=== PATIENT | female | born 1975 | race Caucasian/White ===

== ENCOUNTER 2017-07-28 15:56 | Emergency (ER) | payer OTHER ==
--- NOTE | 2017-07-28 16:40 | RAD REPORT ---
EXAM DESCRIPTION: Jean Single View07/28/2017 4:34 pm CLINICAL HISTORY: Chest pain COMPARISON: none FINDINGS: The lungs appear clear of acute infiltrate. The heart is normal size IMPRESSION: No acute abnormalities displayed
[2017-07-28 16:48] LABS: Absolute Lymphocytes (CBC) 2.2 K/uL (0.7-4.9); Absolute Monocytes 0.7 K/uL (0.1-1.3); Absolute Neutrophil 6.6 K/uL (1.8-8.0); Basophils % 0.6 % (0-1.3); Eosinophils % 2.6 % (0-4.4); Hematocrit 42.7 % (36.0-45.0); Lymphocytes % 22.8 % (15.3-44.8); MCH 32.3 pg (27.0-35.0); MCV 91.9 fL (80-100); Monocytes % 6.8 % (3.3-12.3); RBC Red Blood Cell Count 4.65 M/uL (3.86-4.86)
[2017-07-28 17:00] LABS: Bicarbonate 27 mEq/L (21-31); Glucose Level 93 mg/dL (65-120); Potassium 3.5 mEq/L (3.6-5.0); Sodium Level 137 mEq/L (135-145)
[2017-07-28 17:03] LABS: ALT/SGPT 16 IU/L (10-60); AST/SGOT 19 IU/L (10-42); Albumin 4.5 g/dL (3.2-5.5); Alkaline Phosphatase 67 IU/L (42-121); BUN Blood Urea Nitrogen 7 mg/dL (6-20); Bilirubin Total 0.6 mg/dL (0.3-1.2); Glomerular Filtration Rate > 90 mL/min (=/>90); Protein, Total 7.9 g/dL (6.0-8.3)
--- NOTE | 2017-07-28 18:37 | ER ---
Nurse's Notes [facility] Name: Herminia Chauhan Age: 42 yrs Sex: Female : 1975 Arrival Date: 07/28/2017 Time: 15:59 Bed 27 Private MD: Diagnosis: Chest pain, unspecified;Anxiety disorder, unspecified Presentation: 07/28 16:09 Presenting complaint: Patient states: "I started 3 days ago with a numbness in my left lk1 arm and I thought I slept wrong. Last night I started having chest pains off and on. This morning I woke up with a pins and needles feeling in the left side of my face.". Transition of care: patient was not received from another setting of care. Onset of symptoms was July 24, 2017. Care prior to arrival: None. 16:09 Method Of Arrival: Ambulatory lk1 16:09 Acuity: JAZMIN 3 lk1 Triage Assessment: 16:11 General: Appears in no apparent distress. Behavior is calm, cooperative, appropriate lk1 for age. Pain: Denies pain. Cardiovascular: Capillary refill is brisk Patient's skin is warm and dry. 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 - Social history:: Smoking status: Patient uses tobacco products, smokes one-half pack cigarettes per day. Screenin:44 Abuse screen: Denies threats or abuse. Nutritional screening: No deficits noted. kb1 Tuberculosis screening: No symptoms or risk factors identified. Fall Risk IV access (20 points). Assessment: 16:44 General: Appears in no apparent distress. Behavior is calm, cooperative. Pain: Denies kb1 pain. Neuro: Level of Consciousness is awake, alert, obeys commands, Oriented to person, place, time, situation, Emergency Medicine Physician Assistant are equal bilaterally Moves all extremities. Speech is normal, Facial symmetry appears normal, Intact. Cardiovascular: Patient's skin is warm and dry. Respiratory: Airway is patent. GI: Reports nausea. 17:30 Reassessment: Patient appears in no apparent distress at this time. Patient and/or kb1 family updated on plan of care and expected duration. Pain level reassessed. Patient is alert, oriented x 3, equal unlabored respirations, skin warm/dry/pink. 18:45 Reassessment: Patient appears in no apparent distress at this time. Patient and/or kb1 family updated on plan of care and expected duration. Pain level reassessed. Patient is alert, oriented x 3, equal unlabored respirations, skin warm/dry/pink. Vital Signs: 16:12 BP 146 / 87; Pulse 103; Resp 16; Temp 97.8(TE); Pulse Ox 99% on R/A; Weight 70.31 kg lk1 (R); Height 5 ft. 6 in. (167.64 cm) (R); Pain 0/10; 17:00 BP 123 / 78; Pulse 79; Resp 18; Pulse Ox 98% ; kb1 18:30 BP 116 / 77; Pulse 84; Resp 18; Pulse Ox 99% ; kb1 16:12 Body Mass Index 25.02 (70.31 kg, 167.64 cm) lk1 ED Course: 15:59 Patient arrived in ED. as 16:07 Dino Garcia MD is Attending Physician. ps1 16:11 Triage completed. lk1 16:12 Arm band placed on right wrist. lk1 16:29 Cindy Cheng, RN is Primary Nurse. kb1 16:33 X-ray completed. Portable x-ray completed in exam room. Patient tolerated procedure bb2 well. 16:33 CXR XRAY In Process Unspecified. EDMS 16:44 Patient has correct armband on for positive identification. Bed in low position. Call kb1 light in reach. Side rails up X 1. Pulse ox on. NIBP on. Warm blanket given. 16:44 No provider procedures requiring assistance completed. Inserted saline lock: 22 gauge kb1 in right antecubital area, using aseptic technique. Blood collected. Patient maintains SpO2 saturation greater than 95% on room air. 16:45 EKG done, by ocular care technician. reviewed by Dino Garcia MD. at1 19:03 IV discontinued, intact, bleeding controlled, No redness/swelling at site. Pressure kb1 dressing applied. Administered Medications: No medications were administered Outcome: 18:37 Discharge ordered by . ps1 19:03 Patient left the ED. kb1 Signatures: Dispatcher [employer] EDMS Cathleen Suárez Amanda, internet database specialist EKG Tat1 Kandace Borges, RN RN lk1 Dino Garcia MD MD ps1 Susie Joseph bb2 Cindy Cheng, LEN RN kb1
--- NOTE | 2017-07-28 18:37 | EDPHYS ---
Physician Documentation [facility] Name: Herminia Chauhan Age: 42 yrs Sex: Female : 1975 Arrival Date: 07/28/2017 Time: 15:59 Bed 27 Private MD: ED Physician Dino Garcia HPI: 07/28 16:22 This 42 yrs old Female presents to ER via Ambulatory with complaints of Chest ps1 Pain, Numbness - L Arm/Face. 16:22 The patient or guardian reports chest pain that is located primarily in the anterior ps1 chest wall, left. Onset: last week. The pain radiates to the left shoulder, Associated signs and symptoms: The patient has no apparent associated signs or symptoms. The chest pain is described as dull. Duration: The patient or guardian reports multiple episodes, that are intermittent, that wax and wane. Severity of pain: At its worst the pain was moderate. believes that this is stress or anxiety provoked. 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 . 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 - Social history:: Smoking status: Patient uses tobacco products, smokes one-half pack cigarettes per day. ROS: 16:22 Constitutional: Negative for fever, chills, and weight loss, ENT: Negative for injury, ps1 pain, and discharge, Neck: Negative for injury, pain, and swelling. 16:22 Respiratory: Negative for shortness of breath, cough, wheezing, and pleuritic chest pain, Abdomen/GI: Negative for abdominal pain, nausea, vomiting, diarrhea, and constipation, Back: Negative for injury and pain, MS/Extremity: Negative for injury and deformity, Skin: Negative for injury, rash, and discoloration, Neuro: Negative for headache, weakness, numbness, tingling, and seizure. 16:22 Cardiovascular: Positive for chest pain, of the anterior aspect of left upper chest. 16:22 Psych: Positive for anxiety. Exam: 16:22 Constitutional: This is a well developed, well nourished patient who is awake, alert, ps1 and in no acute distress. Head/Face: Normocephalic, atraumatic. ENT: Nares patent. No nasal discharge, no septal abnormalities noted. Tympanic membranes are normal and external auditory canals are clear. Oropharynx with no redness, swelling, or masses, exudates, or evidence of obstruction, uvula midline. Mucous membranes moist. Neck: Trachea midline, no thyromegaly or masses palpated, and no cervical lymphadenopathy. Supple, full range of motion without nuchal rigidity, or vertebral point tenderness. No Meningismus. Cardiovascular: Regular rate and rhythm. No gallops, murmurs, or rubs. Normal PMI, no JVD. No pulse deficits. Respiratory: Lungs have equal breath sounds bilaterally, clear to auscultation and percussion. No rales, rhonchi or wheezes noted. No increased work of breathing, no retractions or nasal flaring. Abdomen/GI: Soft, non-tender, with normal bowel sounds. No distension or tympany. No guarding or rebound. No evidence of tenderness throughout. Skin: Warm, dry with normal turgor. Normal color with no rashes, no lesions, and no evidence of cellulitis. MS/ Extremity: Pulses equal, no cyanosis. Neurovascular intact. Full, normal range of motion. Neuro: Awake and alert, GCS 15, oriented to person, place, time, and situation. Cranial nerves II-XII grossly intact. Sensory grossly intact. Psych: Awake, alert, with orientation to person, place and time. Behavior, mood, and affect are within normal limits. 16:22 Chest/axilla: Inspection: normal, Palpation: tenderness, that is mild, of the anterior ps1 aspect of left upper chest, that partially reproduces the patient's complaints. Vital Signs: 16:12 BP 146 / 87; Pulse 103; Resp 16; Temp 97.8(TE); Pulse Ox 99% on R/A; Weight 70.31 kg lk1 (R); Height 5 ft. 6 in. (167.64 cm) (R); Pain 0/10; 17:00 BP 123 / 78; Pulse 79; Resp 18; Pulse Ox 98% ; kb1 18:30 BP 116 / 77; Pulse 84; Resp 18; Pulse Ox 99% ; kb1 16:12 Body Mass Index 25.02 (70.31 kg, 167.64 cm) lk1 MDM: 16:20 Patient medically screened. ps1 18:34 HEART Score: History: Slightly Suspicious (0), ECG: Normal (0), Age: < or = 45 years ps1 (0), Risk Factors: 1 or 2 risk factors (1), Troponin: < or = 1 x Normal Limit (0). The patient's pulmonary embolism risk score was calculated as follows: No Risks (0 Pts) suspected deep vein thrombosis (3 Pts) alternative diagnosis is less likely (3 Pts) the patients heart rate is greater than 100 beats per minute (1.5 Pts) patient has experienced immobilization or surgery in the last four weeks (1.5 Pts) the patient has a history of a previous deep vein thrombosis or pulmonary embolism (1.5 Pts) hemoptysis (1.0 Pts) malignancy Total Score: 0-2 points. This patient was found to be at low risk for a pulmonary embolism by using the Well's assessment criteria. Data reviewed: vital signs, nurses notes. ED course: low probability of MACE. Home with follow up. Will give klonopin for SEAN trial. . 07/28 16:21 Order name: CBC with Diff; Complete Time: 16:55 ps1 07/28 16:21 Order name: CMP; Complete Time: 17:30 ps1 07/28 16:21 Order name: CXR XRAY; Complete Time: 16:42 ps1 07/28 16:21 Order name: Troponin (emerg Dept Use Only); Complete Time: 17:30 ps1 07/28 16:21 Order name: D-Dimer; Complete Time: 18:34 ps1 07/28 16:27 Order name: EKG; Complete Time: 16:27 ps1 07/28 17:36 Order name: Labs - recollect needed: D-dimer hemolyzed; Complete Time: 18:52 iw EC:40 Rate is 84 beats/min. Rhythm is regular. QRS [place] is Normal. ID interval is normal. QRS ps1 interval is normal. QT interval is normal. No Q waves. T waves are Normal. No ST changes noted. Clinical impression: Normal ECG. Interpreted by me. Administered Medications: No medications were administered Disposition: 07/28/17 18:37 Discharged to Home. Impression: Chest pain, unspecified, Anxiety disorder, unspecified. - Condition is Stable. - Discharge Instructions: Nonspecific Chest Pain, Generalized Anxiety Disorder. - Prescriptions for Klonopin 0.5 mg Oral Tablet - take 1 tablet by ORAL route every 12 hours As needed; 20 tablet. - Medication Reconciliation Form, Thank You Letter, Antibiotic Education, Prescription Opioid Use form. - Follow up: Private Physician; When: As needed; Reason: Recheck today's complaints, Continuance of care, Re-evaluation by your physician. Follow up: Emergency Department; When: As needed; Reason: Trouble breathing, Worsening of condition. - Problem is new. - Symptoms are unchanged. Signatures: Dispatcher [employer] EDMS Darlene Taylor RN RN iw Kandace Borges RN RN lk1 Dino Garcia MD MD ps1 Cindy Cheng RN RN kb1 Corrections: (The following items were deleted from the chart) 16:26 16:22 Constitutional: This is a well developed, well nourished patient who is awake, ps1 alert, and in no acute distress. Head/Face: Normocephalic, atraumatic. ENT: Nares patent. No nasal discharge, no septal abnormalities noted. Tympanic membranes are normal and external auditory canals are clear. Oropharynx with no redness, swelling, or masses, exudates, or evidence of obstruction, uvula midline. Mucous membranes moist. Neck: Trachea midline, no thyromegaly or masses palpated, and no cervical lymphadenopathy. Supple, full range of motion without nuchal rigidity, or vertebral point tenderness. No Meningismus. Chest/axilla: Normal chest wall appearance and motion. Nontender with no deformity. No lesions are appreciated. Cardiovascular: Regular rate and rhythm. No gallops, murmurs, or rubs. Normal PMI, no JVD. No pulse deficits. Respiratory: Lungs have equal breath sounds bilaterally, clear to auscultation and percussion. No rales, rhonchi or wheezes noted. No increased work of breathing, no retractions or nasal flaring. Abdomen/GI: Soft, non-tender, with normal bowel sounds. No distension or tympany. No guarding or rebound. No evidence of tenderness throughout. Skin: Warm, dry with normal turgor. Normal color with no rashes, no lesions, and no evidence of cellulitis. MS/ Extremity: Pulses equal, no cyanosis. Neurovascular intact. Full, normal range of motion. Neuro: Awake and alert, GCS 15, oriented to person, place, time, and situation. Cranial nerves II-XII grossly intact. Sensory grossly intact. Psych: Awake, alert, with orientation to person, place and time. Behavior, mood, and affect are within normal limits. ps1
--- NOTE | 2017-07-29 05:51 | EKG ---
Test Date: 2017-07-28 Test Time: 16:40:18 Firm Administrator: ANDERS MEASUREMENT RESULTS: Intervals: Rate: 84 CO: 136 QRSD: 88 QT: 384 QTc: 453 [place]: P: 64 CO: 136 QRS: 56 T: 41 INTERPRETIVE STATEMENTS: Normal sinus rhythm Normal ECG No previous ECG available for comparison Electronically Signed On 07-29-17 05:50:23 CDT by Jai Porras
== END 2017-07-28 19:03 | disposition home or self-care (01) ==
LOC: ER 15:56
DX: F41.9 Anxiety disorder, unspecified; F17.210 Nicotine dependence, cigarettes, uncomplicated
CPT/HCPCS: 36415; 71045; 80053; 84484; 85025; 85379; 93005; 99284